=== PATIENT | female | born 1985 | race African-American/Black ===

== ENCOUNTER 2018-08-08 20:35 | Emergency (ER) | payer OTHER ==
[~2018-08-08] VITALS: Ht 152.4 cm; Wt 112.0 kg
== END 2018-08-08 21:44 | disposition home or self-care (01) ==
LOC: ER 20:35 → FSED 20:44
DX: R10.30 Lower abdominal pain, unspecified (principal); R11.0 Nausea
CPT/HCPCS: 81003; 81025; 99282

== ENCOUNTER 2018-08-25 21:12 | Emergency (ER) | payer OTHER ==
[~2018-08-25] VITALS: Ht 152.4 cm; Wt 111.2 kg
--- OUTSIDE RECORDS SUMMARY | 2018-08-25 21:14 | XMS REPORT ---
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 Allergies, Adverse Reactions, Alerts This patient has no known allergies or adverse reactions. Medications This patient has no known medications. Encounters Start Date/Time End Date/Time Encounter Type Admission Type Attending [facility] Facility Care Department Encounter ID 2018-01-05 00:00:00 2018-01-05 00:00:00 Outpatient [facility] [id number] 2017-02-15 14:03:03 2017-02-15 14:03:03 Outpatient [facility] [id number] 2017-02-15 13:19:16 2017-02-15 13:19:16 Outpatient [facility] [id number] 2017-01-22 14:37:46 2017-01-22 14:37:46 Outpatient [facility] [id number] 2017-01-22 12:33:10 2017-01-22 12:33:10 Outpatient [facility] [id number] 2017-01-20 09:49:04 2017-01-20 09:49:04 Outpatient [facility] [id number] 2017-01-20 08:43:15 2017-01-20 08:43:15 Outpatient [facility] [id number] 2016-12-16 10:48:15 2016-12-16 10:48:15 Outpatient [facility] [id number]
[2018-08-25] MEDS ORDERED: IBUPROFEN 200 MG TAB PO STA (22:13)
[2018-08-25] MEDS ORDERED: ACETAMINOPHEN 325 MG TAB PO ONE (22:15)
--- NOTE | 2018-08-25 23:25 | Diagnostic Imaging Report ---
Lumbar Spine Radiographs: 3 views HISTORY: Pain COMPARISON: None available. DISCUSSION: Limited bony detail due to somewhat limited penetration. There are five non-rib bearing lumbar vertebral bodies. The alignment of the spine is within normal limits. No displaced fracture or compression deformity is identified. The disc spaces are well maintained. The facet joints are unremarkable. The osseous structures are partially obscured by stool and bowel gas. IMPRESSION: No acute radiographic abnormality. Signed by: Dr. Enrike Miles M.D. on 08/25/2018 11:22 PM
--- NOTE | 2018-08-25 23:31 | Diagnostic Imaging Report ---
Sacrum and coccyx 3 views HISTORY: Pain COMPARISON: None FINDINGS: Limited bony detail. No displaced fracture. Osseous alignment is within normal limits. The joint spaces are well-maintained. The soft tissues appear unremarkable. IMPRESSION: No acute osseous abnormality. Signed by: Dr. Enrike Miles M.D. on 08/25/2018 11:28 PM
[2018-08-26 01:36] VITALS: BP 111/60
== END 2018-08-25 23:57 | disposition home or self-care (01) ==
LOC: FSED 21:12
DX: M54.42 Lumbago with sciatica, left side (principal); M62.838 Other muscle spasm
CPT/HCPCS: 72100; 72220; 81003; 81025